=== PATIENT | male | born 1940 | race Caucasian/White ===

== ENCOUNTER 2023-04-16 10:15 | Emergency (ER) | payer BC ==
[~2023-04-16] VITALS: Ht 175.3 cm; Wt 83.9 kg
[2023-04-16 10:20] VITALS: BP_SYST 146; PULSE 56; RESP 16; TEMP 98.6; O2SAT 96
[2023-04-16] MEDS ORDERED: BACITRACIN 1 GM OINT TP ONE (10:32)
[2023-04-16 11:07] VITALS: BP_SYST 132; PULSE 52; RESP 20; TEMP 97.7; O2SAT 96
== END 2023-04-16 11:08 | disposition home or self-care (01) ==
LOC: SED 10:15
DX: S61.412A Laceration without foreign body of left hand, initial encounter (principal); W18.39XA Other fall on same level, initial encounter; Y93.89 Activity, other specified; Y92.89 Other specified places as the place of occurrence of the external cause; Y99.8 Other external cause status
CPT/HCPCS: 99283